=== PATIENT | male | born 2000 | race American Indian/Alaskan Native ===

== ENCOUNTER 2023-09-28 10:02 | Emergency (ER) | payer MEDICAID, OTHER ==
[2023-09-28] MEDS: Ibuprofen 600 MG Tab PO ONE (11:07)
[2023-09-28] MEDS ORDERED: Penicillin G Benzathine 1,200,000 Units/2 ML Syringe ONE (11:26)
[2023-09-28] MEDS: Penicillin G Benzathine 1,200,000 Units/2 ML Syringe IM ONE (11:28)
== END 2023-09-28 11:56 | disposition home or self-care (01) ==
LOC: JP.ED 10:02
DX: J03.00 Acute streptococcal tonsillitis, unspecified (principal); Z88.6 Allergy status to analgesic agent
CPT/HCPCS: 87651; 96372; 99283; A9270; J0561